=== PATIENT | male | born 1945 | race Caucasian/White ===

== ENCOUNTER 2021-05-25 06:47 | Observation (INO) ==
[~2021-05-25 06:47] MED LIST: FAMOTIDINE 20 MG in SYRINGE 3 ML IV SCH
[2021-05-25] MEDS ORDERED: LIDOCAINE 1% LOCAL 20 ML VIAL ONE ×2 (07:02→07:04)
--- NOTE | 2021-05-25 08:13 | History & Physical Bridge Note ---
Date of Service May 25, 2021 History & Physical Bridge Note I have examined the patient, reviewed the History & Physical and in the interval since the performance of the History & Physical I have noted the following changes of clinical significance: no changes noted I have explained the risk, benefit and intent to the cardiac catheterization. The patient had a heart catheterization 3 years ago so he understands the procedure. He also has a dye allergy and has taken starting last night prednisone, Benadryl and Pepcid. He has had at least 3 doses of each. He also understands that he has stage III chronic kidney disease and the possibility of kidney failure due to the x-ray dye. He is willing to proceed.
--- NOTE | 2021-05-25 08:13 | Pre Anesthesia Assessment ---
Date of Service May 25, 2021 Pre Sedation Assessment Vital Signs Temp Pulse Resp BP Pulse Ox 05/25/21 07:11 36.8 C 75 16 192/95 H 98 Pre-Sedation Airway Assessment Smoking Status: Current every day smoker Hx Sleep Apnea: No Short, Thick Neck: No Thyromental Distance: > or= 3.5 Finger Breadths Oral Cavity: + WNL Mallampati Class: III ASA: ASA4 NPO Status Date of Last Intake of Fluids: 05/25/21 Time of Last Intake of Fluids: 07:00 Last Oral Intake of Fluids Comment: sip with meds Date of Last Intake of Solid Food: 05/24/21 Time of Last Intake of Solid Foods: 17:00 Notes The planned sedation has been discussed with the patient. Informed Consent was obtained. I have identified the patient, determined the appropriateness of sedation and have assessed the patient immediately prior to the procedure. All medicine(s) and interventions are by my order.
[2021-05-25] MEDS ORDERED: HEPARIN (PORCINE) 1000 UNIT/ML 10 ML (CATH LAB USE ONLY) ONE (08:17)
[2021-05-25] MEDS ORDERED: MIDAZOLAM HCL 1 MG/ML 2ML VIAL ONE (08:17)
[2021-05-25] MEDS ORDERED: NITROGLYCERIN/D5W 100MCG/ML 20ML SYR ONE (08:18)
[2021-05-25] MEDS ORDERED: niCARdipine HCL INJ 2.5 MG/ML 10 ML AMP ONE (08:18)
[2021-05-25] MEDS ORDERED: fentaNYL citrate 100 MCG/2 ML VIAL ONE (08:18)
--- NOTE | 2021-05-25 08:42 | Electrocardiogram Report ---
Test Reason : Blood Pressure : / mmHG Vent. Rate : 079 BPM Atrial Rate : 079 BPM P-R Int : 168 ms QRS Dur : 094 ms QT Int : 396 ms P-R-T Axes : 069 066 051 degrees QTc Int : 454 ms Normal sinus rhythm Normal ECG When compared with ECG of 18-MAY-2011 15:57, No significant change was found Confirmed by Shashank Dunham ([id number]) on 05/25/2021 8:42:31 AM Referred By: Brandan Fernandez Confirmed By:Shashank Dunham
--- NOTE | 2021-05-25 09:14 | Cardiac Catheterization ---
Date of Service May 25, 2021 Cardiac Cath Report Cardiac Cath Report Procedure: 1. Coronary angiography History: This is a 75-year-old male patient who in 2011 had a cardiac catheterization that revealed nonobstructive coronary artery disease. He has history of hypertension and paroxysmal atrial fibrillation. The patient was referred for cardiac catheterization due to classic angina symptoms. Procedure summary: The patient had a dye prep for an allergy starting yesterday. He also has chronic stage III kidney disease which has been stable with the most recent creatinine being 2.1. After informed consent was obtained the patient was brought to the cardiac catheterization lab. He had his previous heart catheterization through the right wrist however, we could not obtain access with great with great flow from the needle but we could not advance the wire far enough to put a sheath in. Therefore the right radial approach was abandoned and a right transfemoral approach was utilized to complete the cardiac catheterization. Following the procedure the patient underwent coronary intervention. [facility] data: Start time 8:26 AM End time 8:54 AM Opening aortic pressure 156/65 Closing aortic pressure 144/67 LV pressurevalve not crossed Sedation 1 mg intravenous Versed IV fluids 73 cc normal saline Contrast 70 cc Visipaque Fluoroscopy time 2.4 minutes Radiation 912 mGy DAP 89.67 Gy/cm Right dominant system AUC score 9 Coronary angiography: Selective injections of the left main trunk reveal it to be widely patent. The left circumflex artery has mild diffuse disease but is widely patent there is a large ramus branch from the left main trunk which has diffuse disease but is widely patent the LAD has a 50% narrowing in its proximal segment he gives off a large first diagonal and several smaller diagonals distally. The remainder the LAD is widely patent with mild diffuse disease. Injections of the right coronary artery reveal it to be dominant. In the mid segment of the right coronary artery there is an 80% stenoses and distally there is ulcerated subtotal stenosis before the takeoff of the PDA. Summary: The index artery is the right coronary artery with an 80% mid stenoses and a distal ulcerated subtotal stenosis just before the takeoff of the PDA. Recommendations: Reviewed by interventional cardiology for stent placement.
[2021-05-25] MEDS ORDERED: TICAGRELOR 90 MG TAB PO ONE (09:20)
[2021-05-25] MEDS: SODIUM CHLORIDE 0.9% 1000ML 1,000 ML IV SCH ×2 (11:35→17:22)
--- NOTE | 2021-05-25 12:06 | Cardiac Catheterization ---
Cardiac Cath Procedure Full Procedure Date May 25, 2021 Pre-Procedure Diagnosis Pre-Procedure Diagnosis: Acute Coronary Syndrome AUC Score AUC Score: 08 Post-Procedure Diagnosis Post-Procedure Diagnosis: Severe CAD Procedure(s) Performed Procedure(s) Performed: Drug Eluting Stent (3.0 x 15 mm MICAELA to proximal/mid RCA, 2.5 x 8 mm MICAELA to distal RCA) Key Account Manager Ryan Ramon MD, PhD Estimated Blood Loss Estimated Blood Loss: 20 mL Medication(s) Medication(s): Diazepam, Fentanyl, Heparin, Lidocaine 1%, Nicardipine, Nitroglycerin and Versed Summary of Findings On my arrival, patient was shaved and prepped in a sterile fashion with an indwelling 5 Surinamese right femoral artery sheath. He had undergone diagnostic coronary angiography performed by Dr. Fernandez. We exchanged the 5 Surinamese sheath for a 6 [place]amese sheath over the wire. Patient then was provided therapeutic anticoagulation with IV heparin. ACT checked intermittently and additional heparin provided as needed to achieve target ACT. PCI was undertaken using a 6 Surinamese JR4 guide catheter and a BMW #7 guidewire which was advanced and positioned distally into the PDA. Over the guidewire, a 2.5 x 12 mm trek balloon was advanced. The distal lesion was predilated up to 2.5 mm. The more proximal lesion was postdilated to rate of burst. The balloon was removed. We attempted to advance a 2.5 x 12 mm drug-eluting stent to the distal lesion but because of the severe angulation in the mid RCA we were unsuccessful. Therefore, the stent was removed and a guide liner catheter was advanced over the wire. We were eventually able to pass a 2.5 x 8 mm drug- eluting stent across the distal lesion where it was deployed at 8 patrizia. That balloon was in deflated and removed. A 3.0 x 15 mm drug-eluting stent was then passed across the lesion in the proximal to early mid segment. This was deployed at 15 patrizia. Stent balloon was removed and a 3.5 x 9 mm sprinter noncompliant balloon was then advanced and positioned within the stent. The mid to distal portion of the stent was postdilated up to 3.4 mm. The mid to distal portion of the stent was postdilated up to 3.65 mm. The noncompliant balloon was then removed. The guide liner and guidewire were removed. Final angiographic evaluation was performed. PCI of RCA: 0% residual stenosis post PCI No evidence of dissection or perforation post PCI NEMO-3 flow post PCI Hemodynamics Rest Ao:: 132/57 mmHg, mean 89 mmHg Final Ao: 148/60 mmHg, mean 83 mmHg LV: NA Recommendations Recommendations: PCI without planned CABG (Dual antiplatelet therapy with aspirin 81 mg daily and Brilinta 90 mg p.o. twice daily. Guideline directed medical therapy for secondary prevention including high intensity statin therapy, beta-sherrill, plus or minus ROMA inhibitor/ARB as tolerated by renal function.) Radiation Exposure (mGy) 2617 Contrast (mls) 105 Procedural Complication(s) None I attest to the content of the Intraoperative Record and any orders documented therein. Any exceptions are noted below. ACC Data: Hospice Physician Cardiac Status Clinical evaluation leading to the procedure CAD Presenation: Unstable angina Anginal Classification: CCS IV Heart Failure: No Cardiogenic Shock within 24 Hours: No Cardiac Arrest within 24 Hours: No Coronary Anatomy RCA (% Stenosis): Proximal (Severe, see Dr. Fernandez report) and Distal (Severe greater than 90%, see Dr. Fernandez report) Diagnostic Physicians Name: Ryan Ramon MD, PhD Closure Device Recommendations: PCI without planned CABG (Dual antiplatelet therapy with aspirin 81 mg daily and Brilinta 90 mg p.o. twice daily. Guideline directed medical therapy for secondary prevention including high intensity statin therapy, beta-sherrill, plus or minus ROMA inhibitor/ARB as tolerated by renal function.) Lesion Segment Name: Distal RCA Culprit Artery: Yes Stenosis Prior to Rx (%): 90+ Pre-Procedure NEMO Flow: 2 Previously Treated Lesion: No Lesion Complexity: Non-High/Non-C Lesion Length (mm): 8 Thrombus Present: No Guidewire Across Lesion: Yes Lesion #2 Segment Name: Proximal to mid RCA Culprit Artery: Yes Stenosis Prior to Rx (%): 70+ Pre-Procedure NEMO Flow: 3 Previously Treated Lesion: No Lesion Complexity: Non-High/Non-C Lesion Length (mm): 12 Thrombus Present: No Bifurcation Lesion: No Guidewire Across Lesion: Yes Intraprocedure Events Significant Disection: No Perforation: No
[2021-05-25] MEDS ORDERED: ACETAMINOPHEN 325 MG TAB PO PRN (13:13)
[2021-05-25] MEDS ORDERED: SODIUM CHLORIDE 0.9% 1000ML 1,000 ML IV SCH (13:15)
--- NOTE | 2021-05-25 13:54 | History & Physical Report ---
Date of Service May 25, 2021 Assessment & Plan (1) CAD (coronary artery disease): Plan: Admit to telemetry Patient presenting for planned cardiac cath today. Recently admitted to [facility] for chest pain and cardiac cath was arranged for today. Cardiac cath today showed right coronary artery with an 80% mid stenoses and a distal ulcerated subtotal stenosis just before the takeoff of the PDA. Patient underwent MICAELA x2 to proximal/mid RCA and distal RCA. ASA, ticagrelor, statin Case discussed with Dr. Fernandez (2) CKD (chronic kidney disease), stage III: Plan: Baseline creatinine runs in the high 1's- low 2's IVF due to contrast received today Follow renal functions in a.m. Hold losartan pending a.m. renal function (3) Paroxysmal atrial fibrillation: Plan: Currently in NSR Rhythm controlled on sotalol Review of outpatient records shows the patient likely has been maintained in NSR for some time Previously not anticoagulated [id number] score 4, consider anticoagulation -discussed with Dr. Fernandez (4) HTN (hypertension): Plan: BP currently controlled, continue amlodipine. Holding losartan as above (5) BPH (benign prostatic hyperplasia): Plan: Continue Terazosin (6) COPD (chronic obstructive pulmonary disease): Plan: No signs of acute exacerbation, continue home inhalers (7) DVT prophylaxis: Plan: SCDs due to heparin received with cardiac cath today Admission and Anticipated Discharge Date Admission Date: May 25, 2021 History of Present Illness Chief Complaint: Post cardiac cath Primary Care Provider: Kathleen Walton MD 75-year-old male with PMH dyslipidemia, tobacco abuse, COPD, paroxysmal atrial fibrillation on sotalol therapy, CAD, HTN, PAD, CKD stage III, GERD, BPH, and other problems below who is status post elective cardiac cath today. Review of outpatient records show that patient was admitted to [facility] last week for evaluation of chest pain. He was set up for elective cardiac cath today. Patient reports having episodes of exertional shortness of breath over the past couple of weeks. Cardiac cath today showed right coronary artery with an 80% mid stenoses and a distal ulcerated subtotal stenosis just before the takeoff of the PDA. Patient underwent MICAELA x2 to proximal/mid RCA and distal RCA. Postprocedure, patient is doing well. He denies chest pain. No shortness of breath. Denies lightheadedness, dizziness, diaphoresis. No abdominal pain or nausea. Patient is hemodynamically stable. Allergies Allergy/AdvReac Type Severity Reaction Status Date / Time cimetidine Allergy Unknown BUT TAKES Verified 05/25/21 07:17 PEPCID AT HOME PER MED REC Iodinated Contrast Media Allergy Unknown IVP DYE Verified 05/25/21 07:17 ALLERGY Home Medications Medication Instructions Recorded Confirmed Type albuterol sulfate 90 mcg/actuation 2 puff INHALATION Q4H PRN 05/25/21 05/25/21 History aerosol inhaler amlodipine 10 mg tablet 10 mg PO DAILY 05/25/21 05/25/21 History aspirin 81 mg tablet 81 mg PO DAILY 05/25/21 05/25/21 History famotidine 20 mg tablet 20 mg PO BID PRN 05/25/21 05/25/21 History losartan 100 mg tablet 100 mg PO DAILY 05/25/21 05/25/21 History pravastatin 40 mg tablet 40 mg PO DAILY 05/25/21 05/25/21 History sotalol 80 mg tablet (Sotalol AF) 80 mg PO BID 05/25/21 05/25/21 History terazosin 2 mg capsule 2 mg PO BID 05/25/21 05/25/21 History umeclidinium 62.5 mcg-vilanterol 1 inh INHALATION DAILY 05/25/21 05/25/21 History 25 mcg/actuation powdr for inhalation (Anoro Ellipta) Past Med/Surg History Medical History (Updated 05/25/21 @ 13:53 by RADHA Hinojosa) BPH (benign prostatic hyperplasia) CAD (coronary artery disease) CKD (chronic kidney disease), stage III COPD (chronic obstructive pulmonary disease) Dyslipidemia GERD (gastroesophageal reflux disease) HTN (hypertension) SOLIS (obstructive sleep apnea) PAD (peripheral artery disease) Paroxysmal atrial fibrillation Surgical History History of cholecystectomy History of sinus surgery History of umbilical hernia repair Family History Brother Heart disease Social History Smoking Status: Current every day smoker Cigarettes Per Day: 10; Hx Alcohol Use: No Hx Substance Use: No Current Living Situation: Spouse Feels Safe at Home: Yes Safety Concerns: Feels Safe At This Time Review of Systems Review of Systems: ROS per HPI, all other systems reviewed and negative Physical Exam Constitutional: WD/WN, vitals as above Eyes: PERRL, conjunctivae normal, anicteric sclerae ENMT: external ear and nose normal, oropharynx normal Respiratory: normal respiratory effort; no respiratory distress Auscultation: + diminished lung sounds (Bilateral bases) Cardiovascular: Rate/Rhythm: regular rate and regular rhythm Vessels: normal peripheral pulses Extremities: no edema Gastrointestinal (Abdomen): normal bowel sounds, soft, nontender, no hepatosplenomegaly Musculoskeletal: no cyanosis or clubbing, extremities motor strength 5/5 Skin: no rashes, warm and dry Dressing in place to right femoral cardiac cath site, small amount of blood noted Neurologic: PERRL, EOMI, accommodation nl, no face palsy, no dysarthria Psychiatric: A+Ox3, euthymic affect Results & Data Results & Data ([facility]) Vital Signs (Past 12 Hours) Vital Signs Temp Pulse Pulse Resp BP BP Pulse Ox 05/25/21 13:14 36.5 C 70 18 172/72 H 98 05/25/21 12:50 36.4 C L 62 20 156/71 H 98 05/25/21 12:39 36.4 C L 67 20 169/77 H 98 05/25/21 12:05 36.3 C L 67 20 163/72 H 99 05/25/21 11:50 34.6 C L 66 20 160/84 H 98 05/25/21 11:35 36.4 C L 63 63 20 167/71 H 99 05/25/21 11:20 36.3 C L 57 L 20 170/68 H 98 05/25/21 10:45 55 L 14 143/78 H 98 05/25/21 10:30 55 L 16 138/72 98 05/25/21 10:15 54 L 16 153/75 H 98 05/25/21 10:12 53 L 16 148/70 H 98 05/25/21 10:05 53 L 16 148/70 H 98 05/25/21 07:11 36.8 C 75 16 192/95 H 98 Pulse Ox 05/25/21 13:14 99 05/25/21 12:50 05/25/21 12:39 05/25/21 12:05 05/25/21 11:50 05/25/21 11:35 05/25/21 11:20 05/25/21 10:45 05/25/21 10:30 05/25/21 10:15 05/25/21 10:12 05/25/21 10:05 05/25/21 07:11 Diagnostic Findings Preprocedure EKG personally reviewed and interpreted. EKG demonstrates NSR. Supervising Physician Co-Signing Physician Notes Attending addendum: The patient was seen and examined in telemetry unit He is a status post cardiac cath for ongoing chest pain and stent placement with MICAELA in mid/proximal RCA and distal RCA Denies any symptoms during my examination in the telemetry unit On examination No distress at rest Hemodynamically stable Chestdecreased present at the bases without crackles HeartS1-S2, regular Abdomen-distended, soft and nontender with normal bowel sound Extremitiesno edema CNSalert, awake and oriented x3 His admission labs, EKG and imaging studies reviewed Has significant history of CAD and proximal atrial fibrillation with hypertension and CKD Underwent cardiac cath for ongoing chest pain and is status post stent placement as above Remains stable in the telemetry unit Appreciate cardiology input and recommendation Agree with assessment and plan as outlined above by Adrianne Mir
[2021-05-25] MEDS: SOTALOL HCL 80 MG TAB PO SCH (21:00)
[2021-05-25] MEDS: TERAZOSIN HCL 1 MG CAP PO SCH (21:00)
[2021-05-25] MEDS: TICAGRELOR 90 MG TAB PO SCH (21:45)
[2021-05-26] MEDS: SODIUM CHLORIDE 0.9% 1000ML 1,000 ML IV SCH (03:29)
[2021-05-26 05:57] LABS: Hematocrit (blood only) 35.5 % (42-52); Mean Corpuscular Hemoglobin 31.4 pg (25-34); Mean Corpuscular Hgb Conc 33.8 g/dL (32-36); Mean Corpuscular Volume 92.9 fL (80-100); Platelet Count 206 K/uL (130-400); RDW Coefficient of Variation 14.6 % (11.5-14.5); RDW Standard Deviation 49.5 fL (36.4-46.3); Red Blood Count 3.82 M/uL (4.7-6.1); White Blood Count 23.35 K/uL (4.8-10.8)
[2021-05-26] MEDS ORDERED: FAMOTIDINE 20 MG in SYRINGE 3 ML IV SCH (06:00)
[2021-05-26 06:16] LABS: Basophils # (auto) 0.02 K/uL (0-0.2); Basophils % (auto) 0.1 %; Echinocytes 1+; Immature Granulocytes # (auto) 0.11 K/uL (0.00-0.02); Immature Granulocytes % (auto) 0.5 %; Lymphocytes # (auto) 1.18 K/uL (1.2-3.4); Lymphocytes % (auto) 5.1 %; Monocytes # (auto) 1.78 K/uL (0.11-0.59); Monocytes % (auto) 7.6 %; Neutrophils # (auto) 20.26 K/uL (1.4-6.5); Neutrophils % (auto) 86.7 %
[2021-05-26 06:26] LABS: BUN Creatinine Ratio 32.8 (10-20); Calcium 8.8 mg/dl (8.5-10.1); Est GFR (African American) 43.2 ml/min; Est GFR (Non-African American) 37.3 ml/min; Potassium 4.6 mmol/L (3.5-5.1)
[2021-05-26] MEDS: TERAZOSIN HCL 1 MG CAP PO SCH (08:15)
[2021-05-26] MEDS: TICAGRELOR 90 MG TAB PO SCH (08:15)
[2021-05-26] MEDS: SOTALOL HCL 80 MG TAB PO SCH (08:15)
--- NOTE | 2021-05-26 08:22 | Electrocardiogram Report ---
Test Reason : Blood Pressure : / mmHG Vent. Rate : 066 BPM Atrial Rate : 066 BPM P-R Int : 172 ms QRS Dur : 088 ms QT Int : 444 ms P-R-T Axes : 061 048 -02 degrees QTc Int : 465 ms Normal sinus rhythm Normal ECG When compared with ECG of 25-MAY-2021 07:03, No significant change Confirmed by Shashank Duhnam ([id number]) on 05/26/2021 8:22:28 AM Referred By: Brandan Fernandez Confirmed By:Shashank Dunham
[2021-05-26] MEDS ORDERED: hydrALAZINE HCL 25 MG TAB PO SCH (09:00)
[2021-05-26] MEDS ORDERED: ASPIRIN 81 MG ECTAB PO SCH (09:00)
[2021-05-26] MEDS ORDERED: amLODIPine BESYLATE 5 MG TAB PO SCH (09:00)
[2021-05-26] MEDS ORDERED: UMECLIDINIUM/VILANTEROL 62.5/25MCG 7 PUFFS/INHALER INH SCH (09:00)
[2021-05-26] MEDS ORDERED: PRAVASTATIN SOD 40 MG TAB PO SCH (09:00)
--- NOTE | 2021-05-26 09:15 | Electrocardiogram Report ---
Test Reason : Blood Pressure : / mmHG Vent. Rate : 063 BPM Atrial Rate : 063 BPM P-R Int : 182 ms QRS Dur : 088 ms QT Int : 466 ms P-R-T Axes : 058 020 001 degrees QTc Int : 476 ms Normal sinus rhythm Normal ECG When compared with ECG of 25-MAY-2021 16:15, No significant change was found Confirmed by Shashank Dunham ([id number]) on 05/26/2021 9:15:12 AM Referred By: Brandan Fernandez Confirmed By:Shashank Dunham
[2021-05-26] MEDS ORDERED: LOSARTAN POTASSIUM 50 MG TAB PO SCH (11:00)
--- NOTE | 2021-05-26 11:08 | Cardiology Consultation ---
Date of Consultation May 26, 2021 Assessment & Plan (1) CAD (coronary artery disease): (2) COPD (chronic obstructive pulmonary disease): (3) CKD (chronic kidney disease), stage III: (4) Paroxysmal atrial fibrillation: (5) Stented coronary artery: The patient can be discharged to outpatient follow-up. He does have a follow-up appointment with his primary graphite grinder Dr. Arechiga later this month which she should keep. He should go home on his home medications. It is important that he remain on aspirin and Brilinta after discharge. In regard to his paroxysmal atrial fibrillation, the patient states he had one episode in 2014 and he has never been on anticoagulation. I think it is best since he will be on dual antiplatelet therapy that we keep him off anticoagulation and then he and his primary graphite grinder can decide if additional anticoagulation is indicated. Patient does have an elevated white count today. He is not febrile or having other symptoms and I suspect that this is due to the steroids that he was started on for his contrast dye allergy leading up to his heart cath. History of Present Illness Attending Physician: Norman Rodriguez MD History of Present Illness This is a 75-year-old male patient who underwent elective cardiac catheterization for progressive angina. He was found to have high-grade stenoses of the mid and distal right coronary artery. He received drug-eluting stents and was admitted to the hospital. He has had an uneventful night and feels well. Allergies Allergy/AdvReac Type Severity Reaction Status Date / Time cimetidine Allergy Unknown BUT TAKES Verified 05/25/21 07:17 PEPCID AT HOME PER MED REC Iodinated Contrast Media Allergy Unknown IVP DYE Verified 05/25/21 07:17 ALLERGY Home Medications Medication Instructions Recorded Confirmed Type albuterol sulfate 90 mcg/actuation 2 puff INHALATION Q4H PRN 05/25/21 05/25/21 History aerosol inhaler amlodipine 10 mg tablet 10 mg PO DAILY 05/25/21 05/25/21 History aspirin 81 mg tablet 81 mg PO DAILY 05/25/21 05/25/21 History famotidine 20 mg tablet 20 mg PO BID PRN 05/25/21 05/25/21 History losartan 100 mg tablet 100 mg PO DAILY 05/25/21 05/25/21 History pravastatin 40 mg tablet 40 mg PO DAILY 05/25/21 05/25/21 History sotalol 80 mg tablet (Sotalol AF) 80 mg PO BID 05/25/21 05/25/21 History terazosin 2 mg capsule 2 mg PO BID 05/25/21 05/25/21 History umeclidinium 62.5 mcg-vilanterol 1 inh INHALATION DAILY 05/25/21 05/25/21 History 25 mcg/actuation powdr for inhalation (Anoro Ellipta) Patient History Medical History BPH (benign prostatic hyperplasia) CAD (coronary artery disease) CKD (chronic kidney disease), stage III COPD (chronic obstructive pulmonary disease) Dyslipidemia GERD (gastroesophageal reflux disease) HTN (hypertension) SOILS (obstructive sleep apnea) PAD (peripheral artery disease) Paroxysmal atrial fibrillation Surgical History History of cholecystectomy History of sinus surgery History of umbilical hernia repair Family History Brother Heart disease Social History Smoking Status: Current every day smoker Cigarettes Per Day: 10; Hx Alcohol Use: No Hx Substance Use: No Communication Ability: Effective marital status: Current Living Situation: Spouse How many Children do You have: 2 Feels Safe at Home: Yes Safety Concerns: Feels Safe At This Time Assistive Devices: None Review of Systems Review of Systems: Review of Systems: See HPI for pertinent positives. All other 10 point review of systems are negative. Physical Exam Physical Exam: General: no acute distress and stated age Head: normocephalic, no masses, lesions, tenderness or abnormalities Eyes: conjunctiva are pink and non-injected, sclera clear Neck: supple, no adenopathy, no bruits, normal jugular venous pulse, no hepatojugular reflux Chest: normal shape and normal respiratory effort Lungs: clear to auscultation and percussion Cardiac Exam: - regular rate & rhythm, no murmurs gallops or rubs - normal S1, normal S2 Pulses: 2(+) throughout Abdomen: abdomen soft, non-tender, no abnormal masses and no hepatosplenomegaly Musculoskeletal: no gait disturbance, no joint inflammation, no deforming arthritis Extremities: no edema and no cyanosis Neuro: grossly normal exam Results & Data ([facility]) Vital Signs (Past 12 Hours) Vital Signs Temp Pulse Pulse Resp BP Pulse Ox 05/26/21 08:29 62 05/26/21 07:40 36.6 C 64 20 187/83 H 96 05/26/21 03:30 36.6 C 58 L 18 175/72 H 96 05/25/21 23:33 36.3 C L 64 16 170/75 H 98 Laboratory Results Laboratory Results - last 24 hr 05/26/21 05/26/21 05:21 05:21 WBC 23.35 H RBC 3.82 L Hgb 12.0 L Hct 35.5 L MCV 92.9 MCH 31.4 MCHC 33.8 RDW Std Deviation 49.5 H RDW Coeff of Mikki 14.6 H Plt Count 206 MPV 10.0 Immature Gran % (Auto) 0.5 Neut % (Auto) 86.7 Lymph % (Auto) 5.1 [place] % (Auto) 7.6 Eos % (Auto) 0.0 Baso % (Auto) 0.1 Neut # (Auto) 20.26 H Lymph # (Auto) 1.18 L [place] # (Auto) 1.78 H Eos # (Auto) 0.00 Baso # (Auto) 0.02 Immature Gran # (Auto) 0.11 H Echinocytes 1+ Sodium 138 Potassium 4.6 Chloride 112 H Carbon Dioxide 19 L Anion Gap 7 BUN 57 H Creatinine 1.74 H Est Cr Clr Drug Dosing 41.0 Est GFR ( Amer) 43.2 Est GFR (Non-Af Amer) 37.3 BUN/Creatinine Ratio 32.8 H Glucose 87 Calcium 8.8 Medications Administered Current Inpatient Medications Acetaminophen (Acetaminophen 325 Mg Tab) 650 mg PO Q4H PRN PRN Reason: Pain or Fever Stop: 06/24/21 13:12 Amlodipine Besylate (Amlodipine Besylate 5 Mg Tab) 10 mg PO DAILY [facility] Stop: 06/25/21 08:59 Last Admin: 05/26/21 08:15 Dose: 10 mg Documented by: Aspirin (Aspirin 81 Mg Ectab) 81 mg PO DAILY [facility] Stop: 06/25/21 08:59 Last Admin: 05/26/21 08:15 Dose: 81 mg Documented by: Hydralazine HCl (Hydralazine Hcl 25 Mg Tab) 25 mg PO Q8 [facility] Stop: 06/25/21 08:59 Last Admin: 05/26/21 09:30 Dose: 25 mg Documented by: Sodium Chloride (Nss 1000ml) 1,000 mls @ 100 mls/hr IV .Q10H DAVID Stop: 06/24/21 08:14 Last Admin: 05/26/21 03:29 Dose: 100 mls/hr Documented by: Losartan Potassium (Losartan Potassium 50 Mg Tab) 100 mg PO QAM DAVID Stop: 06/25/21 10:59 Pravastatin Sodium (Pravastatin Sod 40 Mg Tab) 40 mg PO DAILY [facility] Stop: 06/25/21 08:59 Last Admin: 05/26/21 08:15 Dose: 40 mg Documented by: Sotalol HCl (Sotalol Hcl 80 Mg Tab) 80 mg PO BID DAVID Stop: 06/24/21 20:59 Last Admin: 05/26/21 08:15 Dose: 80 mg Documented by: Terazosin HCl (Terazosin Hcl 1 Mg Cap) 2 mg PO BID DAVID Stop: 06/24/21 20:59 Last Admin: 05/26/21 08:15 Dose: 2 mg Documented by: Ticagrelor (Ticagrelor 90 Mg Tab) 90 mg PO BID DAVID Stop: 06/24/21 20:59 Last Admin: 05/26/21 08:15 Dose: 90 mg Documented by: Umeclidinium/Vilanterol (Umeclidinium/Vilanterol 62.5/25mcg 7 Puffs/Inhaler) 1 puffs INH DAILY [facility]ID Stop: 06/25/21 08:59 Last Admin: 05/26/21 08:15 Dose: 1 puffs Documented by:
--- NOTE | 2021-05-26 11:39 | Discharge Summary ---
Date of Service May 26, 2021 Admission HPI Per Admitting Provider 75-year-old male with PMH dyslipidemia, tobacco abuse, COPD, paroxysmal atrial fibrillation on sotalol therapy, CAD, HTN, PAD, CKD stage III, GERD, BPH, and other problems below who is status post elective cardiac cath today. Review of outpatient records show that patient was admitted to [facility] last week for evaluation of chest pain. He was set up for elective cardiac cath today. Patient reports having episodes of exertional shortness of breath over the past couple of weeks. Cardiac cath today showed right coronary artery with an 80% mid stenoses and a distal ulcerated subtotal stenosis just before the takeoff of the PDA. Patient underwent MICAELA x2 to proximal/mid RCA and distal RCA. Postprocedure, patient is doing well. He denies chest pain. No shortness of breath. Denies lightheadedness, dizziness, diaphoresis. No abdominal pain or nausea. Patient is hemodynamically stable. Principal Diagnosis Coronary Artery Disease Discharge Exam Appears well, pleasant, comfortable Regular rate and rhythm, no murmurs/rubs/gallops Breathing comfortably on room air Right groin cath site is clean/dry/intact Distal extremities are warm and perfused Discharge Data Allergies Allergy/AdvReac Type Severity Reaction Status Date / Time cimetidine Allergy Unknown BUT TAKES Verified 05/25/21 07:17 PEPCID AT HOME PER MED REC Iodinated Contrast Media Allergy Unknown IVP DYE Verified 05/25/21 07:17 ALLERGY Consultations 05/25/21 13:13 Consult Cardiology Routine Procedures Performed Operation Date: 05/25/21 08:00 Actual Procedures s Cineradiography w/Routine Exam - Brandan Fernandez DO s Cath, Coronaries ONLY (no LV) - Brandan Fernandez, DO p Drug Eluting Stent SGl Vessel - Ryan Ramon MD, PhD s Placement Art Occlusive Device - Ryan Ramon MD, PhD Ordered Studies 05/25/21 06:56 CL Cath Imgs for PACS use only Routine Hospital Course (1) CAD (coronary artery disease): Cardiac cath 05/25/2021 showed right coronary artery with an 80% mid stenoses and a distal ulcerated subtotal stenosis just before the takeoff of the PDA. Patient underwent MICAELA x2 to proximal/mid RCA and distal RCA. ASA, ticagrelor, statin (2) CKD (chronic kidney disease), stage III: Baseline creatinine runs in the high 1's- low 2's Cr remains within baseline Losartan resumed (3) Paroxysmal atrial fibrillation: Remains in normal sinus rhythm Rhythm controlled on sotalol Review of outpatient records shows the patient likely has been maintained in NSR for some time Not currently on anticoagulation. With recent cardiac cath and need to remain on dual antiplatelet inhibitor, will defer initiation of AC for now. 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 (4) HTN (hypertension): Continued on Amlodipine. BP elevated while off losartan. Losartan resumed at time of discharge (5) BPH (benign prostatic hyperplasia): Stable (6) COPD (chronic obstructive pulmonary disease): Stable Total Time Total Time Spent Total Time Spent (In Minutes): 40 Discharge Plan Discharge Items Patient Disposition: Home - Self-Care Reason For Visit: Chest Pain Discharge Diagnosis: Coronary Artery Disease Activity: As commented below Lifting: No more than 10 pounds Bathing: May shower/bathe in 3 days Exercise/Sports: Wait until after follow-up appointment Driving/Machine Use: Resume 3 days after discharge Non-emergency contact: Primary Care Provider and Specialist Call non-emergency contact if: you have any medication questions and your symptoms worsen Follow-up/Referrals: Kathleen Walton MD [Primary Care Provider] - Diet: Heart Healthy Addtl Attending Provider Instructions: Please follow up with your primary Manager Work You can resume your home medications In addition to aspirin, you were started on Brilinta. It is very important that you take both Pending Studies at Discharge: No Stand-Alone Forms: [facility], Smoking Cessation Medications and DC Order Prescriptions: New Brilinta 90 mg Tablet 90 mg PO BID 90 Days Qty: 180 RF: 0 Continued pravastatin 40 mg tablet 40 mg PO DAILY RF: 0 sotalol [Sotalol AF] 80 mg tablet 80 mg PO BID RF: 0 famotidine 20 mg Tablet 20 mg PO BID PRN (Reason: reflux) RF: 0 terazosin 2 mg capsule 2 mg PO BID RF: 0 amlodipine 10 mg tablet 10 mg PO DAILY RF: 0 aspirin 81 mg Tablet 81 mg PO DAILY RF: 0 albuterol sulfate 90 mcg/actuation HFA aerosol inhaler 2 puff INHALATION Q4H PRN (Reason: Shortness Of Breath) RF: 0 losartan 100 mg tablet 100 mg PO DAILY RF: 0 Anoro Ellipta 62.5-25 mcg/actuation blister with device 1 inh INHALATION DAILY RF: 0 Discharge Orders: Discharge Order (Routine); Ordered 05/26/21 Ordered By: Norman Rodriguez Admission Data Admit Date/Time: 05/25/21 11:17 Attending Provider: Norman Rodriguez Admit Provider: Brandan Fernandez Primary Care Provider: Kathleen Walton Other Providers: Brandan Fernandez ; Martha Mir
== END 2021-05-26 14:05 | disposition home or self-care (01) ==
LOC: 2S 06:47 → CC 06:47 → SUATTDRO 11:17
PROC: CLB.CCO (2021-05-25 08:00)